=== PATIENT | male | born 1950 | race Caucasian/White ===

== ENCOUNTER 2016-10-29 17:26 | Day surgery (SDC) | payer BC, MEDICARE, OTHER ==
[~2016-10-29] VITALS: Ht 182.9 cm; Wt 117.9 kg
[~2016-10-29 17:26] MED LIST: GBPN300C PO; HYDR-3730 PO; LISI-552 PO; OXYC-12 PO
[2016-10-29] MEDS ORDERED: ONDANSETRON 4 MG/2 ML (SDV) Z0FRAN ONE (17:43)
[2016-10-29 17:45] LABS: BASOPHILS % (AUTO) 0 % (0-10); EOSINOPHILS % (AUTO) 0 % (0-10); LYMPHOCYTES # (AUTO) 0.7 X 10^3 (1.0-4.0); LYMPHOCYTES % (AUTO) 5 % (12-44); MEAN CORPUSCULAR HEMOGLOBIN 33 PG (25-34); MEAN CORPUSCULAR HGB CONC 36 G/DL (32-36); MEAN CORPUSCULAR VOLUME 92 FL (80-99); MEAN PLATELET VOLUME 9.9 FL (7.4-10.4); MONOCYTES % (AUTO) 7 % (0-12); NEUTROPHILS # (AUTO) 13.4 X 10^3 (1.8-7.8); NEUTROPHILS % (AUTO) 88 % (42-75); PLATELET COUNT 167 10^3/uL (130-400); RED BLOOD COUNT 4.62 10^6/uL (4.35-5.85); RED CELL DISTRIBUTION WIDTH 13.2 % (10.0-14.5); WHITE BLOOD COUNT 15.2 10^3/uL (4.3-11.0)
[2016-10-29] MEDS ORDERED: fentaNYL INJECTION 100 MCG/2 ML AMP IVP ONE (17:45)
[2016-10-29] MEDS ORDERED: NS IV 1000 ML 1,000 ML IV SCH (17:45)
[2016-10-29] MEDS ORDERED: PHEN37.53 PO (17:46)
[2016-10-29 17:54] LABS: PROTHROMBIN TIME PATIENT 12.9 SEC (12.2-14.7)
--- NOTE | 2016-10-29 17:57 | ED Abdominal Pain ---
General Chief Complaint: Abdominal/GI Problems Stated Complaint: ABDOMINAL PAIN Nursing Triage Note: PT CO OF ABD PAIN SINCE SATURDAY EVENING, VOMITED TODAY A FEW TIMES Sepsis Screen: No Definite Risk Source of Information: Patient Exam Limitations: No Limitations History of Present Illness Time Seen By Provider: 17:55 Initial Comments 48 hour history of abdominal pain. This initially started. Umbilical and has moved to the right lower quadrant and now affects the right flank. He reports vomiting a few times including some blood-streaked vomit. No lightheadedness or syncope. No history of this. Severity/Quality: Moderate Radiation: No Radiation Activities at Onset: None Allergies and Home Medications Allergies Coded Allergies: No Known Drug Allergies (Unverified , 01/15/11) Home Medications Gabapentin 300 Mg Cap, 300 MG PO DAILY, (Reported) Hydrocodone/Acetaminophen 1 Each Tablet, 1-2 EACH PO Q6H, #35 Prescribed by: MARIELENA MOSLEY on 02/16/16 1554 Lisinopril 20 Mg Tablet, 20 MG PO DAILY, (Reported) Phentermine HCl 37.5 Mg Tablet, 37.5 MG PO DAILY, (Reported) Review of Systems Constitutional: see HPI, chills EENTM: No Symptoms Reported Respiratory: No Symptoms Reported Cardiovascular: No Symptoms Reported Gastrointestinal: See HPI, Abdominal Pain, Nausea, Vomiting Genitourinary: No Symptoms Reported Musculoskeletal: no symptoms reported Skin: no symptoms reported Psychiatric/Neurological: No Symptoms Reported Endocrine: No Symptoms Reported Past Jmcwdsr-Sckqvj-Wqgolf Hx Patient Social History Alcohol Use: Denies Use Recreational Drug Use: No Smoking Status: Never a Smoker Recent Foreign Travel: No Contact w/Someone Who Travel: No Recent Infectious Disease Expo: No Recent Hopitalizations: No Immunizations Up To Date Date of Pneumonia Vaccine: Feb 14, 2015 Date of Influenza Vaccine: Jan 14, 2016 Seasonal Allergies Seasonal Allergies: No Surgeries HX Surgeries: Yes (umb hernia, lower back sx) Respiratory Hx Respiratory Disorders: No (sleep apnea prior to weight loss) Respiratory Disorders: Sleep Apnea Cardiovascular Hx Cardiac Disorders: No Cardiac Disorders: Hypertension Neurological Hx Neurological Disorders: No Reproductive System Hx Reproductive Disorders: No Genitourinary Hx Genitourinary Disorders: No Gastrointestinal Hx Gastrointestinal Disorders: No Musculoskeletal Hx Musculoskeletal Disorders: No (LEG CRAMPS, BACK SURGERIES) Musculoskeletal Disorders: Arthritis Endocrine Hx Endocrine Disorders: No HEENT HX ENT Disorders: No Cancer Hx Cancer: No Psychosocial Hx Psychiatric Problems: No Integumentary HX Skin/Integumentary Disorder: No Blood Transfusions Hx Blood Disorders: No Physical Exam Vital Signs VS - Last 72 Hours, by Label 10/29/16 17:30 Temp 98.2 Pulse 71 Resp 18 B/P (MAP) 147/87 Pulse Ox 97 Capillary Refill : Less Than 3 Seconds General Appearance: WD/WN, no apparent distress HEENT: PERRL/EOMI, normal ENT inspection Neck: non-tender, full range of motion Respiratory: no respiratory distress, no accessory muscle use Cardiovascular: regular rate, rhythm, no murmur Gastrointestinal: normal bowel sounds, soft, tenderness (RLQ) Extremities: normal range of motion, non-tender Neurologic/Psychiatric: alert, normal mood/affect, oriented x 3 Skin: normal color, warm/dry Progress/Results/Core Measures Results/Orders Lab Results Laboratory Tests Test 10/29/16 17:40 Range/Units White Blood Count 15.2 H 4.3-11.0 10^3/uL Red Blood Count 4.62 4.35-5.85 10^6/uL Hemoglobin 15.3 13.3-17.7 G/DL Hematocrit 42 40-54 % Mean Corpuscular Volume 92 80-99 FL Mean Corpuscular Hemoglobin 33 25-34 PG Mean Corpuscular Hemoglobin Concent 36 32-36 G/DL Red Cell Distribution Width 13.2 10.0-14.5 % Platelet Count 167 130-400 10^3/uL Mean Platelet Volume 9.9 7.4-10.4 FL Neutrophils (%) (Auto) 88 H 42-75 % Lymphocytes (%) (Auto) 5 L 12-44 % Monocytes (%) (Auto) 7 0-12 % Eosinophils (%) (Auto) 0 0-10 % Basophils (%) (Auto) 0 0-10 % Neutrophils # (Auto) 13.4 H 1.8-7.8 X 10^3 Lymphocytes # (Auto) 0.7 L 1.0-4.0 X 10^3 Monocytes # (Auto) 1.0 0.0-1.0 X 10^3 Eosinophils # (Auto) 0.0 0.0-0.3 10^3/uL Basophils # (Auto) 0.0 0.0-0.1 10^3/uL Neutrophils % (Manual) 69 % Lymphocytes % (Manual) 7 % Monocytes % (Manual) 4 % Eosinophils % (Manual) 0 % Basophils % (Manual) 0 % Band Neutrophils 20 % Blood Morphology Comment NORMAL Prothrombin Time 12.9 12.2-14.7 SEC INR Comment 1.0 0.8-1.4 Sodium Level 135 135-145 MMOL/L Potassium Level 4.1 3.6-5.0 MMOL/L Chloride Level 99 98-107 MMOL/L Carbon Dioxide Level 27 21-32 MMOL/L Anion Gap 9 5-14 MMOL/L Blood Urea Nitrogen 17 7-18 MG/DL Creatinine 1.06 0.60-1.30 MG/DL Estimat Glomerular Filtration Rate > 60 BUN/Creatinine Ratio 16 Glucose Level 129 H 70-105 MG/DL Calcium Level 9.5 8.5-10.1 MG/DL Total Bilirubin 1.0 0.1-1.0 MG/DL Aspartate Amino Transf (AST/SGOT) 21 5-34 U/L Alanine Aminotransferase (ALT/SGPT) 34 0-55 U/L Alkaline Phosphatase 69 40-136 U/L Total Protein 7.3 6.4-8.2 GM/DL Albumin 4.3 3.2-4.5 GM/DL My Orders Orders - ANÍBAL SHUKLA APRN Cbc With Automated Diff (10/29/16 17:39) Comprehensive Metabolic Panel (10/29/16 17:39) Ua Culture If Indicated (10/29/16 17:39) Saline Lock/Iv-Start (10/29/16 17:39) Protime With Inr (10/29/16 17:39) Ct Abdomen/Pelvis W (10/29/16 17:39) Ns Iv 1000 Ml (Sodium Chloride 0.9%) (10/29/16 17:45) Fentanyl Injection (Sublimaze Injection (10/29/16 17:45) Manual Differential (10/29/16 17:40) Ondansetron Injection (Zofran Injectio (10/29/16 17:43) Iohexol Injection (Omnipaque 350 Mg/Ml 1 (10/29/16 18:15) Ns (Ivpb) (Sodium Chloride 0.9% Ivpb Bag (10/29/16 18:15) Medications Given in ED Current Medications Medications Dose Ordered Sig/Barbara Route Start Time Stop Time Status Last Admin Dose Admin Fentanyl Citrate 50 mcg ONCE ONCE IVP 10/29/16 17:45 10/29/16 17:46 DC 10/29/16 17:54 50 MCG Iohexol 100 ml ONCE ONCE IV 10/29/16 18:15 10/29/16 18:16 DC 10/29/16 18:19 100 ML Ondansetron HCl 4 mg STK-MED ONCE .ROUTE 10/29/16 17:43 10/29/16 17:50 DC 10/29/16 17:54 4 MG Sodium Chloride 100 ml ONCE ONCE IV 10/29/16 18:15 10/29/16 18:16 DC 10/29/16 18:19 80 ML Vital Signs/I&O Vital Sign - Last 12Hours 10/29/16 17:30 Temp 98.2 Pulse 71 Resp 18 B/P (MAP) 147/87 Pulse Ox 97 Blood Pressure Mean: 107 Diagnostic Imaging Diagonstic Imaging: CT Comments NAME: GABRIELA CRESPO MED REC#: [id number] PT STATUS: REG ER : 1950 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 TECHNIQUE: Multiple contiguous axial images were obtained through the abdomen and pelvis after administration of intravenous contrast. INDICATION: Right inguinal and lower quadrant pain. COMPARISON: None available. FINDINGS: Lower chest: There is a small amount of dependent atelectasis in lung bases. No pericardial or pleural effusion. Peritoneum: No free intraperitoneal air. Liver and biliary system: The liver is normal. Gallbladder is distended with numerous radiopaque gallstones. No gallbladder wall thickening or pericholecystic fluid. No biliary duct dilatation. Spleen and Pancreas: Spleen is normal. The pancreas enhances normally without mass lesion or peripancreatic inflammatory changes. Adrenals: Normal. tract: The kidneys enhance normally without suspicious mass or obstruction. There is a 6.2 x 6.0 cm exophytic cyst on the lower pole of the right kidney. Punctate 2 mm nonobstructing calculus in the lower pole of the right kidney as well as in the upper pole of the right kidney. Urinary bladder is distended without wall thickening. Prostate is not enlarged. GI tract: Stomach is distended with fluid without wall thickening. No bowel obstruction. The appendix is very dilated due to an obstructing appendicolith at its neck. The appendix measures up to 2.2 cm in size and there is mild surrounding inflammatory change indicative of acute appendicitis. No fluid collection to indicate abscess or surrounding air to indicate microperforation. Colonic diverticulosis without diverticulitis. Vasculature and Lymph nodes: Normal caliber aorta with mild atherosclerotic plaquing. No abdominal or pelvic lymphadenopathy. Musculoskeletal: No concerning osseous lesion. IMPRESSION: 1. Acute appendicitis secondary to an obstructing appendicolith at the neck of the appendix. No perforation, abscess formation or bowel obstruction. 2. Punctate (2 mm) nonobstructing right renal calculi. 3. Colonic diverticulosis without diverticulitis. 4. Cholelithiasis. Dictated on workstation # [id number] Dict: 10/29/16 1839 Trans: 10/29/16 1845 [facility] [id number] Interpreted by: SOILA PIMENTEL MD Electronically signed by: Departure Impression Impression: Primary Impression: Acute appendicitis Disposition: ADMITTED INPATIENT Condition: Stable Departure-Patient Inst. Referrals: AYE DONOVAN MD (PCP/Family) Primary Care Physician ANÍBAL SHUKLA APRN Oct 29, 2016 17:57
[2016-10-29 18:02] LABS: ALANINE AMINOTRANSFERASE 34 U/L (0-55); ALBUMIN 4.3 GM/DL (3.2-4.5); ANION GAP 9 MMOL/L (5-14); ASPARTATE AMINO TRANSFERASE 21 U/L (5-34); BLOOD UREA NITROGEN 17 MG/DL (7-18); BUN/CREATININE RATIO 16; CALCIUM 9.5 MG/DL (8.5-10.1); CARBON DIOXIDE 27 MMOL/L (21-32); CHLORIDE 99 MMOL/L (98-107); CREATININE SERUM 1.06 MG/DL (0.60-1.30); GFR ESTIMATED > 60; GLUCOSE 129 MG/DL (70-105); POTASSIUM 4.1 MMOL/L (3.6-5.0); SODIUM 135 MMOL/L (135-145); TOTAL PROTEIN 7.3 GM/DL (6.4-8.2)
[2016-10-29] MEDS ORDERED: NS 100 ML (IVPB) BAG IV ONE (18:15)
[2016-10-29] MEDS ORDERED: IOHEXOL 350 MG/ML 100 ML (OMNIPAQUE 350) VIAL IV ONE (18:15)
[2016-10-29 18:35] LABS: BAND NEUTROPHILS 20 %; BASOPHILS % (MANUAL) 0 %; EOSINOPHILS % (MANUAL) 0 %; LYMPHOCYTES % (MANUAL) 7 %; NEUTROPHILS % (MANUAL) 69 %
--- NOTE | 2016-10-29 18:46 | Diagnostic Imaging Report ---
PROCEDURE: CT abdomen and pelvis with contrast. TECHNIQUE: Multiple contiguous axial images were obtained through the abdomen and pelvis after administration of intravenous contrast. INDICATION: Right inguinal and lower quadrant pain. COMPARISON: None available. FINDINGS: Lower chest: There is a small amount of dependent atelectasis in lung bases. No pericardial or pleural effusion. Peritoneum: No free intraperitoneal air. Liver and biliary system: The liver is normal. Gallbladder is distended with numerous radiopaque gallstones. No gallbladder wall thickening or pericholecystic fluid. No biliary duct dilatation. Spleen and Pancreas: Spleen is normal. The pancreas enhances normally without mass lesion or peripancreatic inflammatory changes. Adrenals: Normal. tract: The kidneys enhance normally without suspicious mass or obstruction. There is a 6.2 x 6.0 cm exophytic cyst on the lower pole of the right kidney. Punctate 2 mm nonobstructing calculus in the lower pole of the right kidney as well as in the upper pole of the right kidney. Urinary bladder is distended without wall thickening. Prostate is not enlarged. GI tract: Stomach is distended with fluid without wall thickening. No bowel obstruction. The appendix is very dilated due to an obstructing appendicolith at its neck. The appendix measures up to 2.2 cm in size and there is mild surrounding inflammatory change indicative of acute appendicitis. No fluid collection to indicate abscess or surrounding air to indicate microperforation. Colonic diverticulosis without diverticulitis. Vasculature and Lymph nodes: Normal caliber aorta with mild atherosclerotic plaquing. No abdominal or pelvic lymphadenopathy. Musculoskeletal: No concerning osseous lesion. IMPRESSION: 1. Acute appendicitis secondary to an obstructing appendicolith at the neck of the appendix. No perforation, abscess formation or bowel obstruction. 2. Punctate (2 mm) nonobstructing right renal calculi. 3. Colonic diverticulosis without diverticulitis. 4. Cholelithiasis. Dictated by: Dictated on workstation # [id number]
[2016-10-29] MEDS ORDERED: BUP/EPI 0.25% 1:200,000 (MARCAINE) 10 ML VIAL IJ ONE ×2 (19:13)
[2016-10-29 19:15] LABS: BILIRUBIN,URINE NEGATIVE (NEGATIVE); KETONES,URINE NEGATIVE (NEGATIVE); LEUKOCYTE ESTERASE ,URINE 2+ (NEGATIVE); NITRITE,URINE NEGATIVE (NEGATIVE); PH,URINE 6 (5-9); PROTEIN,URINE 1+ (NEGATIVE); UROBILINOGEN,URINE NORMAL (NORMAL)
[2016-10-29] MEDS ORDERED: LACTATED RINGERS 1,000 ML IV ONE ×2 (19:20→20:53)
[2016-10-29] MEDS ORDERED: metroNIDAZOLE 500MG/100ML IVPB 100 ML ONE (19:22)
[2016-10-29] MEDS ORDERED: proPOfol 200 MG/20 ML (DIPRIVAN) VIAL IV ONE (19:29)
[2016-10-29] MEDS ORDERED: SUCCINYLCHOLINE INJ 100 MG/5 ML SYR ONE (19:29)
[2016-10-29] MEDS: LACTATED RINGERS 1,000 ML IV SCH ×2 (19:29→20:40)
[2016-10-29] MEDS ORDERED: MIDAZOLAM 2 MG/2 ML (VERSED) VIAL ONE (19:29)
[2016-10-29] MEDS ORDERED: ROCURONIUM 50 MG/5 ML (ZEMURON) VIAL IV ONE (19:29)
[2016-10-29] MEDS ORDERED: fentaNYL INJECTION 250 MCG/5 ML AMP ONE (19:29)
[2016-10-29] MEDS ORDERED: ceFAZolin 2 GM/50 ML NS 50 ML IV ONE (19:30)
--- NOTE | 2016-10-29 19:48 | History & Physicial ---
History of Present Illness History of Present Illness Reason for visit/HPI RIGHT LOWER QUADRANT PAIN OF [address] SCAN CONFIRMS AN ENLARGED APPENDIX MEASURING 2.6 INDICATING ACUTE APPENDICITIS. tHERE IS NO PERFORATION AT THIS TIME. iNCIDE ASYMPTOMATIC GALLSTONES ARE DISCO Date of Admission Date Seen by Provider: Oct 29, 2016 Time Seen by Provider: 18:56 I consulted on this patient on 10/29/16 19:43 Attending Physician Caesar Meier MD Admitting Physician Bobby Roche MD Consult Allergies and Home Medications Allergies Coded Allergies: No Known Drug Allergies (Unverified , 01/15/11) Home Medications Gabapentin 300 Mg Cap, 300 MG PO DAILY, (Reported) Hydrocodone/Acetaminophen 1 Each Tablet, 1-2 EACH PO Q6H, #35 Prescribed by: MARIELENA MOSLEY on 02/16/16 1554 Lisinopril 20 Mg Tablet, 20 MG PO DAILY, (Reported) Phentermine HCl 37.5 Mg Tablet, 37.5 MG PO DAILY, (Reported) Past Qcssbkl-Ensecz-Nwknly Hx Patient Social History Marrital Status: Employed/Student: retired Alcohol Use: Denies Use Recreational Drug Use: No Smoking Status: Never a Smoker Recent Foreign Travel: No Contact w/other who traveled: No Recent Hopitalizations: No Recent Infectious Disease Expo: No Immunizations Up To Date Date of Pneumonia Vaccine: Feb 14, 2015 Date of Influenza Vaccine: Jan 14, 2016 Seasonal Allergies Seasonal Allergies: No Surgeries HX Surgeries: Yes (umb hernia, lower back sx) Respiratory Hx Respiratory Disorders: No (sleep apnea prior to weight loss) Cardiovascular Hx Cardiovascular Disorders: Yes Cardiac Disorders: Hypertension Neurological Hx Neurological Disorders: No Reproductive System Hx Reproductive Disorders: No Genitourinary Hx Genitourinary Disorders: No Gastrointestinal Hx Gastrointestinal Disorders: No Musculoskeletal Hx Musculoskeletal Disorders: No (LEG CRAMPS, BACK SURGERIES) Musculoskeletal Disorders: Arthritis Endocrine Hx Endocrine Disorders: No HEENT HX ENT Disorders: No Cancer Hx Cancer: No Psychosocial Hx Psychiatric Problems: No Integumentary HX Skin/Integumentary Disorder: No Blood Transfusions Hx Blood Disorders: No Constitutional: fever, malaise EENTM: no symptoms reported Respiratory: no symptoms reported Cardiovascular: no symptoms reported Gastrointestinal: abdominal pain (RLQ) Genitourinary: no symptoms reported Musculoskeletal: no symptoms reported Psychiatric/Neurological: No Symptoms Reported Physical Exam Vital Signs Vital Sign - Last 12Hours 10/29/16 10/29/16 17:30 19:40 Temp 98.2 Pulse 71 Resp 18 B/P (MAP) 147/87 Pulse Ox 97 O2 Delivery Room Air Capillary Refill : Less Than 3 Seconds General Appearance: Moderate Distress HEENT: Normal ENT Inspection Neck: Normal Inspection Respiratory: Lungs Clear Cardiovascular: Regular Rate, Rhythm Gastrointestinal: Other Rectal: Deferred Extremity: Normal Inspection Neurologic/Psychiatric: Alert, Oriented x3 Skin: Warm/Dry Comments subumbilical scar with induration around the umbilicus, due to mesh placement. No recurrence. No recurrence of the inguinal hernia.tenderness over the right lower reynold Assessment/Plan Assessment and Plan gentleman with acute appendicitis. Previous umbilical hernia repair with recurrence. Offered laparoscopic appendectomy with concomitant cholecystectomy. Operative details, expected recovery,complications of wound infection and intra-abdominal abscess formation discussed in detail.Seems to understand and is willing to proceed with surgery Problems: Admission Diagnosis acute appendicitis with gallstones CAESAR MEIER MD Oct 29, 2016 7:48 pm
--- NOTE | 2016-10-29 19:49 | Progress Note-Pre Operative ---
Pre-Operative Progress Note H&P Reviewed The H&P was reviewed, patient examined and no changes noted. Date Seen by Provider: Oct 29, 2016 Time Seen by Provider: 18:56 Date H&P Reviewed: Oct 29, 2016 Time H&P Reviewed: 19:49 Pre-Operative Diagnosis: Acute appendicitis. Gallstones ISAIAH MEIER MD Oct 29, 2016 7:49 pm
[2016-10-29] MEDS ORDERED: morphine INJ 10 MG/ML 1ML (SYR OR VIAL) ONE (20:20)
[2016-10-29] MEDS ORDERED: SEVOFLURANE (ULTANE) 15 ML INHAL SOLN ONE (20:53)
[2016-10-29] MEDS ORDERED: NEOSTIGMINE (BLOXIVERZ ) 1 MG/1ML 10 ML VIAL ONE (21:12)
[2016-10-29] MEDS ORDERED: GLYCOPYRROLATE 0.2 MG/ML (ROBINUL) 2 ML VIAL ONE (21:12)
--- NOTE | 2016-10-29 21:26 | Operative Report ---
Operative Report Date of Procedure/Surgery Oct 29, 2016 Surgeon (s) ISAIAH MEIER MD Supervisor Color Making (s): Not applicable Post-Operative Diagnosis Same Procedure Performed 1.Laparoscopic appendectomy 2. Laparoscopic cholecystectomy Description of Procedure Anesthesia Type: General Estimated blood loss (mL): Minimal Specimen(s) collected/removed appendix and gallbladder Description of the Procedure Indication for procedure: This gentleman presented with acute appendicitis, confirmed by CT scan. Incidental radio opaque gallstones were discovered as well. He was therefore offered prompt laparoscopic appendectomy with concomitant cholecystectomy. Informed consent was obtained and complications of postoperative wound infection , intra-abdominal abscess,, bile leak etc.were discussed with him. Description of the procedures; He was placed supine on the operating table and general anesthesia induced using an endotracheal tube. 2 g of Ancef and 500 mg of Flagyl were administered intravenously as prophylaxis against wound infection. Sequential compression devices were placed around his legs , to minimize the risk of venous thrombosis. Abdomen was prepared and draped in the usual sterile manner. Due to previous surgery involving a recurrent umbilical hernia with mesh placement, I elected to achieve pneumoperitoneum using a Veress needle introduced over the left sub- costal margin. Intra-abdominal pressure was maintained at 15 mmHg using carbon dioxide insufflation. A 5 mm trocar was placed and anatomy visualized using a 30 laparoscope. An inflamed and turgid appendix with purulent exudates on the surface was identified in a retrocecal position. Terminal ileum was adherent to base of the appendix. Some turbid fluid was evident over right lower quadrant as well. The patient was turned into steep Trendelenburg position, with the right side tilted up. Under direct view,I placed a 10 mm trocar superior to the edge of the pre- existing mesh followed by a 12 mm trocar over the left lower quadrant and a 5 mm trocar over the right side of the abdomen. Meso-appendix was controlled using Harmonic scalpel and the base of the appendix transected using an Endo MAXINE, 2.5 mm stapler. Hemostasis along the staple line was satisfactory. Appendix was then placed in an Endo Catch bag to be removed at the end of the operation. We, then, turned our attention to the right upper quadrant after turning the patient into reverse Trendelenburg position. Flimsy omental adhesions where found along the body of the gallbladder. Fundus of the gallbladder was retracted cephalad and the infundibulum grasped with a pair of atraumatic forceps. Tissue around Calot's triangle was incised using Harmonic scalpel, delineating the cystic duct and artery. The cystic duct was divided between ligaclips and the stump reinforced with 2 separate PDS Endoloops. Cystic artery was controlled using ligaclips and Harmonic scalpel. Gallbladder was then placed in a separate Endo Catch bag. Both bags were removed via the supraumbilical incision under direct view. The fascia over the supraumbilical was closed using #1 Vicryl. Skin incisions were closed using 4-0 vicry in a subcuticular fashion. He tolerated the procedure well, was extubated in the operating room and taken to the recovery room in a stable condition. Findings of the Procedure see operative report Allergies and Home Medications Allergies Coded Allergies: No Known Drug Allergies (Unverified , 01/15/11) Home Medications Gabapentin 300 Mg Cap, 300 MG PO DAILY, (Reported) Hydrocodone/Acetaminophen 1 Each Tablet, 1-2 EACH PO Q6H, #35 Prescribed by: MARIELENA MOSLEY on 02/16/16 1554 Lisinopril 20 Mg Tablet, 20 MG PO DAILY, (Reported) Phentermine HCl 37.5 Mg Tablet, 37.5 MG PO DAILY, (Reported) ISAIAH MEIER MD Oct 29, 2016 9:26 pm
[2016-10-29] MEDS ORDERED: fentaNYL INJECTION 100 MCG/2 ML AMP IV PRN (21:30)
[2016-10-29] MEDS ORDERED: ONDANSETRON 4 MG/2 ML (SDV) Z0FRAN IV PRN (21:30)
[2016-10-29] MEDS ORDERED: HYDR-3820 PO (21:30)
[2016-10-29] MEDS ORDERED: HYDROcodone/APAP 5 MG/325 MG (LORTAB) TAB PO PRN (21:30)
--- NOTE | 2016-10-29 21:31 | Discharge Inst-Simple/Standard ---
Discharge Inst-Standard Discharge Medications New, Converted or Re-Newed RX: RX on Chart Patient Instructions/Follow Up Plan of Care/Instructions/FU: dressings off in a.m. Incentive spirometry. Follow-up in 10 days Activity as Tolerated: Yes Discharge Diet: No Restrictions ISAIAH MEIER MD Oct 29, 2016 9:31 pm
[2016-10-29] MEDS ORDERED: morphine INJ 10 MG/ML 1ML (SYR OR VIAL) IVP PRN (21:45)
[2016-10-29] MEDS ORDERED: KETOROLAC 30 MG/ML VIAL IVP ONE (21:45)
[2016-10-29] MEDS ORDERED: ONDANSETRON 4 MG/2 ML (SDV) Z0FRAN IVP PRN (21:45)
[2016-10-29 22:35] VITALS: BP 146/78
[2016-10-29 23:35] VITALS: BP 144/79
[2016-10-30] MEDS: LACTATED RINGERS 1,000 ML IV SCH ×2 (00:08→07:46)
[2016-10-30 03:40] VITALS: BP 108/67
[2016-10-30] MEDS: ceFAZolin INJECTION 1,000 MG in NS (IVPB) 50 ML IV SCH ×2 (03:52→11:22)
[2016-10-30] MEDS: metroNIDAZOLE 500MG/100ML IVPB 100 ML IV SCH ×2 (04:14→11:49)
--- NOTE | 2016-10-30 07:56 | Anesthesia-General Post-Op ---
General Patient Condition Mental Status/LOC: Same as Preop Cardiovascular: Satisfactory Nausea/Vomiting: Absent Respiratory: Satisfactory Pain: Controlled Complications: Absent Post Op Complications Complications None Follow Up Care/Instructions Patient Instructions None needed. Anesthesia/Patient Condition Patient Condition Patient is doing well, no complaints, stable vital signs, no apparent adverse anesthesia problems. No complications reported per nursing. D/C home per [facility] Criteria: No REGINA HUMPHRIES CRNA Oct 30, 2016 07:56
[2016-10-30 08:15] VITALS: BP 113/63
[2016-10-30] MEDS ORDERED: lisINopril 10 MG (PRINIVIL) TAB PO SCH (09:00)
[2016-10-30] MEDS ORDERED: GABAPENTIN 300 MG (NEURONTIN) CAP PO SCH (09:00)
[2016-10-30] MEDS ORDERED: lisINopril 20 MG (ZESTRIL) TAB PO SCH (09:00)
[2016-10-30 12:00] VITALS: BP 135/60
== END 2016-10-30 13:15 | disposition home or self-care (01) ==
LOC: EDUNIT# 17:26 → ER 17:27 → SDC 19:12 → UNDOADMOB 22:35 → 4TH 22:35 → ENPENDDIS 10-30 10:00 → SDC 10-30 13:15 → UNDODISOB 10-30 13:15
PROVIDERS: ATTEND Surgery
DX: K35.80 Unspecified acute appendicitis (principal); N20.0 Calculus of kidney; K80.20 Calculus of gallbladder without cholecystitis without obstruction; I10 Essential (primary) hypertension; K57.30 Diverticulosis of large intestine without perforation or abscess without bleeding; Z79.899 Other long term (current) drug therapy
CPT/HCPCS: 36415; 74177; 80053; 81000; 85007; 85027; 85610; 88304; 94664; 96374; 96375

== ENCOUNTER → 2019-04-27 | Outpatient (CLI) | payer MEDICARE, OTHER ==
[~2019-04-27] MED LIST changes: +HYDR-3820 PO; +PHEN37.53 PO
--- NOTE | 2019-04-27 14:51 | Diagnostic Imaging Report ---
INDICATION: Left-sided hydrocele, epididymitis. TECHNIQUE: Real-time grayscale sonographic imaging and color vascular evaluation of the scrotum. CORRELATION STUDY: None. FINDINGS: RIGHT TESTICLE: 4.6 x 1.9 x 2.6 cm. LEFT TESTICLE: 4.6 x 2.5 x 2.6 cm. The testicles are in normal location and demonstrate homogeneous echotexture. There is vascular flow to the testicles. Right epididymis appears unremarkable. There is presence of moderate-sized left-sided hydrocele. The left epididymis is somewhat displaced and not well visualized. A definitive abnormal epididymis however cannot be confirmed. IMPRESSION: 1. Moderate left-sided hydrocele is present with some displacement of the scrotal contents including epididymis. The left epididymis cannot be well defined and therefore evaluated. Dictated by: Dictated on workstation # [id number]
== END ==
LOC: RAD 13:19
PROVIDERS: ATTEND Urology
DX: N43.3 Hydrocele, unspecified (principal); N45.1 Epididymitis
CPT/HCPCS: 76870

== ENCOUNTER 2019-12-23 06:39 | Outpatient (CLI) | payer MEDICARE, OTHER ==
[~2019-12-23] VITALS: Ht 182.9 cm; Wt 134.1 kg
[~2019-12-23 06:39] MED LIST changes: +ACHYD1T PO; -HYDR-3820 PO
[2019-12-23] MEDS ORDERED: GABA300C PO (12:48)
[2019-12-23] MEDS ORDERED: TMSL.4C PO (12:48)
== END 2019-12-23 13:06 | disposition home or self-care (01) ==
LOC: PREOP 06:39 → EDSTATUS 12:30 → PREOP 13:06
PROVIDERS: ATTEND Urology
DX: Z01.818 Encounter for other preprocedural examination (principal)

== ENCOUNTER 2019-12-29 06:05 | Day surgery (SDC) | payer MEDICARE, OTHER ==
[~2019-12-29] VITALS: Ht 182.9 cm; Wt 134.1 kg
[2019-12-29] VITALS (9 sets, daily range): BP systolic 124–157; BP diastolic 71–92
[~2019-12-29 06:05] MED LIST changes: +GABA300C PO; +TMSL.4C PO
[2019-12-29] MEDS ORDERED: proPOfol 200 MG/20 ML (DIPRIVAN) VIAL IV ONE (06:36)
[2019-12-29] MEDS ORDERED: ONDANSETRON 4 MG/2 ML (SDV) Z0FRAN ONE ×2 (06:37→08:11)
[2019-12-29] MEDS ORDERED: SEVOFLURANE (ULTANE) 15 ML INHAL SOLN ONE ×4 (06:37→08:43)
[2019-12-29] MEDS ORDERED: MIDAZOLAM 2 MG/2 ML (VERSED) VIAL ONE (06:37)
[2019-12-29] MEDS ORDERED: LIDOCAINE PF 2% 5 ML (XYLOCAINE) VIAL ONE (06:37)
[2019-12-29] MEDS ORDERED: fentaNYL INJECTION 100 MCG/2 ML AMP ONE (06:37)
[2019-12-29] MEDS ORDERED: ceFAZolin INJECTION 1,000 MG in WATER (STERILE) FOR INJECTION 10 ML IV ONE (06:45)
[2019-12-29] MEDS ORDERED: WATER (STERILE) FOR INJECTION 10 ML ONE (06:45)
[2019-12-29] MEDS ORDERED: ceFAZolin INJECTION 1,000 MG ONE (06:45)
[2019-12-29] MEDS: LACTATED RINGERS 1,000 ML IV PRN ×2 (06:50→09:14)
--- NOTE | 2019-12-29 08:00 | Progress Note-Pre Operative ---
Pre-Operative Progress Note H&P Reviewed The H&P was reviewed, patient examined and no changes noted. Date Seen by Provider: Dec 29, 2019 Time Seen by Provider: 07:59 Date H&P Reviewed: Dec 29, 2019 Time H&P Reviewed: 07:59 Pre-Operative Diagnosis: LEFT MODERATE HYDROCELE IVA NGO MD Dec 29, 2019 07:59
--- NOTE | 2019-12-29 08:01 | Progress Note-Post Operative ---
Post-Operative Progess Note Surgeon (s)/Environmental Service Aide (s) Surgeon IVA NGO MD Environmental Service Aide: NONE Pre-Operative Diagnosis LEFT MODERATE HYDROCELE Post-Operative Diagnosis SAME Procedure & Operative Findings Date of Procedure 12/29/19 Procedure Performed/Findings LT HYDROCELECTOMY Anesthesia Type GENERAL Estimated Blood Loss Estimated blood loss (mL): LESS THAN 50CC Specimens/Packing Specimens Removed LT HYDROCELE SAC Packing: DRAIN IVA NGO MD Dec 29, 2019 08:01
--- NOTE | 2019-12-29 08:04 | Discharge Inst-Urology ---
Discharge Inst-Urology Reconcile Patient Problems Problems Reviewed?: Yes Final Diagnosis LT MODERATE HYDROCELE Patient Instructions/Follow Up Plan/Assessment/Instructions Please make appointment to been seen in office in 2 weeks, rest till then and scrotal support Ice to scrotum in RR and at home for 6 hours and then PRN Come to office tomorrow 9am to DC drain than start showers, no bath Keep bowels soft and moving Increase oral fluids for 48 hours and then as needed. Diet as tolerated. If questions or concerns contact your physician Or seek help at emergency department. IVA NGO MD Dec 29, 2019 08:04
[2019-12-29] MEDS ORDERED: ROCURONIUM 10 MG/ML 5 ML SYRINGE IV ONE (08:44)
[2019-12-29] MEDS ORDERED: HYDROmorphone 2 MG/ML VIAL (DILAUDID) IV ONE (09:15)
[2019-12-29] MEDS ORDERED: ONDANSETRON 4 MG/2 ML (SDV) Z0FRAN IVP PRN (09:15)
[2019-12-29] MEDS ORDERED: morphine INJ 10 MG/ML 1ML (SYR OR VIAL) IVP ONE (09:15)
[2019-12-29] MEDS ORDERED: MEPERIDINE (DEMEROL) INJ 50 MG/ML IVP ONE (09:15)
[2019-12-29] MEDS ORDERED: TRAM50TA3 PO (10:09)
[2019-12-29] MEDS ORDERED: CEPH-507 PO (10:09)
--- NOTE | 2019-12-29 13:26 | OPERATIVE REPORT ---
DATE OF SERVICE: 12/29/2019 PREOPERATIVE DIAGNOSIS: Moderate left hydrocele. POSTOPERATIVE DIAGNOSIS: Moderate left hydrocele. OPERATION PERFORMED: Left hydrocelectomy. SURGEON: Wayne Ngo MD ANESTHESIA: General. COMPLICATIONS: None. DESCRIPTION OF PROCEDURE: Under satisfactory general anesthesia, the patient in supine position, genitalia were prepped and draped in the usual sterile fashion. An incision was made in the medial raphae carried through the layer of the left scrotal compartment. Bleeders were cauterized as dissection was proceeding. A moderate amount of hydrocele fluid was suctioned. The testicle, epididymis was delivered in the wound and were normal and preserved at all time. The excess hydrocele sac was excised and the edges cauterized and then the reversed behind the spermatic cord to prevent recurrence with few interrupted 3-0 chromic catgut. Appendix testicle was excised and the base cauterized. The testicle and structures were replaced inside the scrotum that was drained with a Hemovac drain brought through a separate stab wound in the bottom of the scrotum secured in position with 3-0 chromic catgut. The closure was performed in layers, first the dartos with running 3-0 chromic catgut and then the skin was interrupted 4-0 Vicryl. Needle, sponge, instrument count correct x2. Estimated blood loss was 50 mL, none of which was replaced. The patient tolerated the procedure and anesthesia well and was sent to recovery room in stable condition after application of fluffs and scrotal support. Instruction was given to his . Job ID: [id number] DocumentID: [id number] Dictated Date: 12/29/2019 09:05:02 [address] Date: 12/29/2019 13:25:35 Dictated By: WAYNE NGO MD
== END 2019-12-29 10:45 | disposition home or self-care (01) ==
LOC: SDC 06:05
PROVIDERS: ATTEND Urology
DX: N43.3 Hydrocele, unspecified (principal); I10 Essential (primary) hypertension; G62.9 Polyneuropathy, unspecified; N52.9 Male erectile dysfunction, unspecified; G47.33 Obstructive sleep apnea (adult) (pediatric); N40.0 Benign prostatic hyperplasia without lower urinary tract symptoms; Z85.828 Personal history of other malignant neoplasm of skin; Z99.89 Dependence on other enabling machines and devices; Z79.899 Other long term (current) drug therapy; Z88.0 Allergy status to penicillin; Z11.2 Encounter for screening for other bacterial diseases
CPT/HCPCS: 87081

== ENCOUNTER → 2020-05-23 | Outpatient (CLI) | payer MEDICARE, OTHER ==
[~2020-05-23] MED LIST changes: +CEPH-507 PO; +TRAM50TA3 PO
== END ==
LOC: LABNPT 05:46
PROVIDERS: ATTEND Orthopaedic Surgery Orthopaedic Trauma
DX: Z01.812 Encounter for preprocedural laboratory examination (principal); Z20.822 Contact with and (suspected) exposure to COVID-19
CPT/HCPCS: 87635

== ENCOUNTER → 2021-05-09 | Outpatient (CLI) | payer MEDICARE, OTHER ==
[~2021-05-09] VITALS: Ht 182 cm; Wt 140.0 kg
[~2021-05-09] MED LIST changes: -LISI-552 PO; +LISI20TA26 PO; -PHEN37.53 PO; +PHEN37.58 PO; +REGADENOSON 0.4 MG/5 ML SYR (LEXISCAN) IV ONE
[2021-05-09] MEDS: CATHETER FLUSH 10 ML SYR IV PRN ×2 (11:04→13:07)
[2021-05-09 13:05] VITALS: BP 129/71
--- NOTE | 2021-05-09 18:12 | STRESS TEST ---
DATE OF SERVICE: 05/09/2021 RESTING AND POST REGADENOSON TECHNETIUM-99M TETROFOSMIN SPECT CT IMAGING ORDERING PHYSICIAN: Leydi Spivey APRN PRIMARY PHYSICIAN: PEDRO Resendez CLINICAL DIAGNOSES: Shortness of breath. Baseline images were carried out after injection of 10.79 mCi of technetium-99m Tetrofosmin. This was followed by 0.4 mg regadenoson and 30.2 mCi of technetium-99m Tetrofosmin for stress imaging. The electrocardiogram showed sinus rhythm at baseline and it did not change significantly with the regadenoson infusion. The patient tolerated the procedure well. Review of images at rest and following stress does not indicate any distinct perfusion defects consistent with significant myocardial ischemia or infarction. Gated images show normal global left ventricular systolic function with normal regional wall motion. Left ventricular ejection fraction is calculated to be 73%. Left ventricular end-diastolic volume is 82 mL. TID is absent (1.08). CONCLUSIONS: 1. No evidence of any significant myocardial ischemia or infarction on this study. 2. Normal regional wall motion. 3. Normal global left ventricular systolic function with a calculated ejection fraction of 73%. Job ID: [id number] DocumentID: [id number] Dictated Date: 05/09/2021 15:45:30 Marine Surveyor Date: 05/09/2021 18:11:21 Dictated By: JACQUELINE DE OLIVEIRA MD, MA, FACP, FACC,
== END ==
LOC: CARD 10:30
PROVIDERS: ATTEND Nurse Practitioner Family
DX: I51.7 Cardiomegaly (principal)
CPT/HCPCS: 78452; 93017; 93306; A9502